=== PATIENT | female | born 1960 | race Caucasian/White ===

== ENCOUNTER 2016-11-15 11:27 | Inpatient (IN) ==
[2016-11-15] MEDS ORDERED: TORADOL IV ONE (12:04)
[2016-11-15 12:12] LABS: MANUAL DIFF NEEDED? NO
[2016-11-15 12:16] LABS: BASO% 0.3 % (0.0-0.8); EOS# 0.04 X1000 (0.0-0.7); EOS% 0.3 % (0.0-10.0); HEMOGLOBIN 14.4 g/dL (12.0-16.0); IMM GRAN# 0.03 X1000 (0.0-0.04); IMM GRAN% 0.2 % (0.0-0.5); LYMPH# 1.58 X1000 (1.2-3.4); LYMPH% 11.1 % (20.5-51.1); MCH 30.8 PG (27-31); MCHC 34.3 g/dL (33-37); MCV 89.7 FL (81-99); MONO# 1.46 X1000 (0.11-0.59); MONO% 10.2 % (1.7-9.3); MPV 9.9 FL (7.4-10.4); NEUT% 77.9 % (42.2-75.2); PLT 322 X1000 (130-400); RBC 4.68 XMIL (4.2-5.4)
--- NOTE | 2016-11-15 12:16 | EKG Report ---
Test Performed on : 11/15/2016 11:24:14 AM Test Reason : ABD PAIN Blood Pressure : / mmHG Vent. Rate : 115 BPM Atrial Rate : 115 BPM P-R Int : 140 ms QRS Dur : 096 ms QT Int : 324 ms P-R-T Axes : -26 132 -17 degrees QTc Int : 448 ms Sinus tachycardia. Incomplete right bundle branch block Left posterior fascicular block Anteroseptal infarct , age undetermined T wave abnormality, consider inferior ischemia Abnormal ECG No previous ECGs available Unconfirmed Result
[2016-11-15 12:45] LABS: AGAP 17; ALKALINE PHOSPHATASE 87 U/L (32-104); AMYLASE 52 U/L (20-200); BUN 8 mg/dL (8-22); CALCIUM 9.8 mg/dL (8.8-10.2); CHLORIDE 92 mmol/L (98-107); COSMO 266; GOT 10 U/L (10-30); GPT 8 U/L (10-36); LIPASE 20 U/L (13-60); POTASSIUM 3.7 mmol/L (3.5-5.1); SODIUM 134 mmol/L (136-145); TCO2 25 mmol/L (25-35); TOTAL BILIRUBIN 0.58 mg/dL (0.20-1.00); TOTAL PROTEIN 7.6 g/dL (6.3-8.3)
--- NOTE | 2016-11-15 12:45 | Diag Imaging Result Doc PS360 ---
CHEST-2 VIEWS - 11/15/2016 INDICATION: fever TECHNIQUE: COMPARISON: 02/20/2015 FINDINGS: The lungs are normally expanded and clear. Heart size and mediastinal contours are normal. No pneumothorax or pleural effusion. IMPRESSION: Negative exam. Electronically signed by Lui Silverio 11/15/2016 12:42 PM
[2016-11-15 12:58] LABS: URINE SOURCE CLEAN CATCH
[2016-11-15 13:02] LABS: BILIRUBIN URINE NEGATIVE (NEGATIVE); BLOOD URINE TRACE (NEGATIVE); COLOR ORANGE; GLUCOSE URINE NEGATIVE (NEGATIVE); LEUKOCYTES URINE LARGE (NEGATIVE); NITRITE URINE NEGATIVE (NEGATIVE); PROTEIN URINE TRACE mg/dL (NEGATIVE); SP GRAVITY URINE 1.017; TURBIDITY URINE HAZY (CLEAR); UROBILINOGEN URINE 2 mg/dL (NORMAL)
[2016-11-15 13:04] LABS: URINE MICRO REVIEW NEEDED? YES
[2016-11-15 13:10] LABS: UR EPITHELIAL CELLS >10 /HPF (<10); URINE BACTERIA 1+ /HPF; URINE CULTURE NEEDED? YES; URINE RBC <10 /HPF (<10); URINE WBC TNTC /HPF (<10)
[2016-11-15] MEDS ORDERED: ROCEPHIN 1 GM in NS 50 ML IV ONE (13:13)
[2016-11-15 13:14] LABS: URINE CASTS NONE SEEN; URINE CRYSTALS NONE SEEN; URINE SMALL ROUND CELLS NONE SEEN
--- NOTE | 2016-11-15 14:08 | Diag Imaging Result Doc PS360 ---
CT ABD/PELVIS W/ IV CONT ONLY - 11/15/2016 INDICATION: lower abd pain TECHNIQUE: A CT dose reduction protocol was used. COMPARISON: None FINDINGS: The lung bases are clear and the heart size is normal. There is a small abscess at the deep right pelvis. This measures about 6.3 x 3.5 cm. This is adjacent to the terminal ileum and also the right adnexa. This is very inflamed. There is trace pelvic free fluid. No urinary obstruction. There are some reactive mesenteric lymph nodes in the right lower quadrant. No free air. Abdominal organs are all normal. There is a round slightly hyper sclerotic mass in the L1 vertebral body. This is actually stable from the lumbar spine MRI of 07/08/2011. No other bony lesions. Stable moderate lumbar spondylosis. No fractures. IMPRESSION: 1. Small inflamed right-sided pelvic abscess, etiology uncertain. This may be from appendicitis, pelvic inflammatory disease, endometriosis, or small bowel diverticulitis just for example. The appendix is not visible. 2. Stable indeterminate bony lesion in L1 vertebral body. Electronically signed by Lui Silverio 11/15/2016 2:06 PM
[2016-11-15] MEDS ORDERED: ZOSYN 3.375 GM in NS 50 ML IV ONE (14:31)
[2016-11-15] MEDS ORDERED: VANCOMYCIN 1 GM/NS 1 GM/250 ML IVPB IV ONE (14:31)
[2016-11-15] MEDS ORDERED: MORPHINE IV ONE (14:32)
[2016-11-15] MEDS ORDERED: ZOFRAN IV ONE (14:32)
[2016-11-15] MEDS ORDERED: ZOFRAN IV PRN (14:35)
[2016-11-15] MEDS ORDERED: NS 1,000 ML IV ONE ×2 (14:35→17:05)
--- NOTE | 2016-11-15 14:40 | PROVIDER DOCUMENTATION ---
This chart was entered by Yesica Arroyo Scribe, acting as scribe for Ethan Lord PA. HPI-Abdominal Pain/GI Problem - General Chief Complaint: Abdominal Pain Stated Complaint: abd pain Time Seen by Provider: 11/15/16 11:50 Source: patient Allergies/Adverse Reactions: Patient Allergies Allergy/AdvReac Type Severity Reaction Status Date / Time No Known Allergies Allergy Verified 11/15/16 11:58 Home Medications: Home Medication List Medication Instructions Recorded Confirmed Last Taken Type Amoxicillin/Potassium Clav 1 tab PO BID 11/15/16 11/15/16 Unknown History [Amox-Clav 875-125 mg Tablet] Levothyroxine [Synthroid] 137 microgm PO DAILY 11/15/16 11/15/16 11/15/16 07:00 History Lisinopril 5 mg PO DAILY 11/15/16 11/15/16 11/15/16 07:00 History Megestrol Acetate 400 mg PO QPM PRN 11/15/16 11/15/16 Unknown History Omeprazole 40 mg PO DAILY 11/15/16 11/15/16 11/15/16 07:00 History - History of Present Illness-ABD Nature of Presenting Problems: Pt is 56 y/o F presents to the ED with lower abdominal pain. Pt states pain has been present for 2 days. Pt endorses nausea and constipation. She denies vomiting, back pain, vaginal discharge. She is post menopausal and denies being sexually active. Pt states recently on Augmentin but does not know why. Abdominal Pain Onset Location: reports: RLQ, LLQ, suprapubic Pain Radiation: reports: no radiation Quality of Pain: reports: aching Severity in ED: reports: mild Onset/Duration: reports: 2 days ago Timing: reports: still present Activities at Onset: reports: light activity Modifying Factors: improves with: nothing Associated Symptoms: reports: constipation, fever/chills. denies: anxiety, arm pain, back/neck pain, chest pain, cough, diaphoresis, diarrhea, dizziness, EENT symptoms, fatigue, genitourinary problems, headaches, heartburn, joint pain, loss of appetite, malaise, muscle aches, sinus congestion/drainage, nausea, rash , seizure, shortness of breath, sensory/motor loss, pain with inspiration, swelling/mass in abdomen, syncope, vomiting, weakness, trouble walking Last BM: 2 days ago Dark Stools Present?: reports: none noticed Rectal Bleeding: reports: none Rectal Pain: reports: none Emesis Description: reports: none Bruising or Bleeding Gums?: No Similar Symptoms Previously?: Yes (present for 2 days ) Recently seen or treated by another doctor?: No Review of Systems - Adult - REVIEW OF SYSTEMS - ADULT Constitutional: reports: no symptoms reported Eyes: reports: no symptoms reported Ears, Nose, Mouth & Throat: reports: no symptoms reported Cardiovascular: reports: no symptoms reported Respiratory: reports: no symptoms reported Gastrointestinal: reports: abdominal pain (lower abdomen), constipation. denies : diarrhea, nausea, vomiting Genitourinary: reports: no symptoms reported Musculoskeletal: reports: no symptoms reported Integumentary: reports: no symptoms reported Neurological: reports: no symptoms reported Psychiatric: reports: no symptoms reported Endocrine: reports: no symptoms reported Hematologic/Lymphatic: reports: no symptoms reported Allergic/Immunologic: reports: no symptoms reported All Other Systems: Reviewed and Negative Past History - Adult - PAST MEDICAL HISTORY-ADULT Review of Records: reports: Nursing Assessment Review, Medications Reviewed, Social history reviewed & non-contributory. Major Childhood Illnesses: reports: denies history Cardiovascular: reports: HTN, hyperlipidemia Respiratory: reports: asthma Gastrointestinal: reports: GERD Obstetrical/Gynecological: reports: denies history Genitourinary: reports: denies history Musculoskeletal: reports: denies history Neurological: reports: denies history Endocrine/Immune: reports: thyroid disorder Other Conditions: reports: denies history - PRIOR SURGERIES/PROCEDURES Surgical/Procedure History: reports: BTL - IMMUNIZATION STATUS Childhood Immunizations: See Nurse Assessment Flu Vaccine: See Nurse Assessment - FAMILY HISTORY Family History: reviewed, not pertinent - SOCIAL HISTORY Smoking: cigarettes, greater than 1 pack/day Provider spent 3-5 mins advising pt. on dangers of tobacco.: Discussed manners to quit use, and f/u contacts for add'l counseling. Substance Use: alcohol, marijuana Alcohol Use Frequency: occasionally Number of drinks per typical drinking period:: 2 drinks Living Situation: family Physical Exam-General - PHYSICAL EXAM-ADULT Initial Vital Signs Reviewed: Yes - CONSTITUTIONAL General Appearance: appears well, alert, no apparent distress. negative: lethargic, slow to respond - EYES Eyes: PERRL/EOMI, pink conjunctivae. negative: pale conjunctivae, sunken eyes - HEAD, EARS, NOSE, MOUTH & THROAT HENMT: normocephalic/atraumatic, moist mucous membranes, normal ENT inspection. negative: angioedema, hearing deficit - NECK Neck: non-tender, normal inspection. negative: lymphadenopathy, tender lateral - RESPIRATORY Respiratory: chest non-tender, lungs clear, normal breath sounds. negative: crackles, rhonchi, wheezing - CARDIOVASCULAR Cardiovascular: normal peripheral pulses, regular rate, rhythm. negative: tachycardia, systolic murmur - GASTROINTESTINAL (ABDOMEN) Abdominal Exam: normal bowel sounds, soft, tenderness (RLQ, suprapubic.). negative: distended, guarding, hernia - LYMPHATIC Lymphatic: no adenopathy. negative: enlargement, streaking - MUSCULOSKELETAL Back Exam: normal inspection. negative: ecchymosis, swelling Extremity: normal range of motion, normal inspection. negative: deformity, swelling, tenderness - SKIN Integumentary: normal color, normal turgor, warm/dry. negative: ecchymosis, erythema, pallor, rash - NEUROLOGIC Neurologic: grossly normal. negative: aphasia, facial droop - PSYCHIATRIC Psych/Mental Status: normal mood/affect, oriented x 3. negative: paranoid, tearful Progress - PLAN OF CARE/RESULTS Progress/Plan/Lab Results: Vital Signs - 8 hr 11/15/16 11:35 Temperature 99.5 F Pulse Rate 115 H Respiratory Rate 23 Blood Pressure 154/105 O2 Sat by Pulse Oximetry 98 Laboratory Results - last 24 hr 11/15/16 11:40 WBC 14.25 H RBC 4.68 Hgb 14.4 Hct 42.0 MCV 89.7 MCH 30.8 MCHC 34.3 RDW Std Deviation 12.4 Plt Count 322 MPV 9.9 Immature Gran % (Auto) 0.2 Neut % (Auto) 77.9 H Lymph % (Auto) 11.1 L [place] % (Auto) 10.2 H Eos % (Auto) 0.3 Baso % (Auto) 0.3 Immature Gran # (Auto) 0.03 Neut # (Auto) 11.10 H Lymph # (Auto) 1.58 [place] # (Auto) 1.46 H Eos # (Auto) 0.04 Baso # (Auto) 0.04 Orders Category Date Time Status Saline Loc DIRECTED Care 11/15/16 12:02 Active NPO Diet 11/15/16 12:02 Active CHEST-2 VIEWS [RAD] Stat Exams 11/15/16 12:[address] ABD/PELVIS W/ IV CONT ONLY [CT] Stat Exams 11/15/16 12:03 Ordered AMYLASE [CHEM] Stat Lab 11/15/16 11:40 Received CBC WITH ELECTRONIC DIFF [HEME] Stat Lab 11/15/16 11:40 Completed COMPREHENSIVE METABOLIC PANEL [CHEM] Stat Lab 11/15/16 11:40 Received LIPASE [CHEM] Stat Lab 11/15/16 11:40 Received URINALYSIS W/POSS RFLX CULT-1 [URINALYSIS] Stat Lab 11/15/16 12:02 Uncollected Ketorolac [Toradol] Med 11/15/16 12:04 Discontinued 30 mg IV NOW ONE EKG [EKG] Stat Ther 11/15/16 11:52 Draft Result Diagrams: 11/15/16 11:40 11/15/16 11:40 - REASSESSMENT Reassessment #1 Time Reassessed: 14:39 Status: improving (Ms. Brown is feeling better. Will admit to Dr. Mayer's service for further managament. Case and plan of care discussed with Dr. Owens.) - XRAY 1 XRAY Study: Chest Impression: Normal XRAY Interpretation: negative exam - CT/MRI 1 CT Study: Abdomen, Pelvis Impression: See EMR Report ( 1. Small inflamed right-sided pelvic abscess, etiology uncertain. This may be from appendicitis, pelvic inflammatory disease, endometriosis, or small bowel diverticulitis just for example. The appendix is not visible. 2. Stable indeterminate bony lesion in L1 vertebral body.) - CONSULTS/PCP/HOSPITALIST Notification #1 *Consult/PCP/Hospitalist*: Dr. Mayer Time Discussed: 14:34 Consult Disposition: Admit (start vanc and zosyn.) Departure - Departure Date of Disposition Decision: 11/15/16 Time of Disposition Decision: 14:34 DIAGNOSIS: Pelvic abscess Disposition: ADMITTED INPATIENT 09 Certified Medical Emergency: Emergent Condition: Stable Referrals and Follow-Ups: Sandra Pink CRNP [Primary Care Provider] - Discharge Education: Smoking Cessation, Tips for Success - Critical Care Note This patient required my direct & personal management of CC.: No Attestation - Physician/ BOZENA Attestation Patient care was provided by Advanced Practice Provider:: Yes Advanced Practice Provider:: Ethan Lord Advanced Practice Provider documentation review:: The Mid-level provider documentation, treatment plan and medical decision making was reviewed by the physician who agrees with all treatment and medical decision making by the MLP. The physician spent face to face time with patient:: No Advanced Practice Provider documentation review:: Supervising physician onsite and consulted in the evaluation and care of this patient. The physician did not have a face to face encounter with the patient. This chart was documented by the candice scribe, (Yesica Arroyo Scribe) and accurately reflects the services I performed and decisions made by , Ethan Lord, PA, as attested by the provider's signature.
[2016-11-15] MEDS ORDERED: VANCOMYCIN IV PER PHARMACY MISC SCH (17:15)
[2016-11-15] MEDS: PROTONIX IV SCH (18:00)
[2016-11-15] MEDS ORDERED: VANCOMYCIN 750 MG in NS 150 ML IV ONE (18:00)
[2016-11-15] MEDS: MORPHINE IV PRN ×2 (18:01→21:26)
[2016-11-15] MEDS: NS 1,000 ML IV SCH (18:01)
[2016-11-15] MEDS: ZOSYN 3.375 GM in NS 50 ML IV SCH (21:28)
--- NOTE | 2016-11-16 01:02 | HISTORY AND PHYSICAL ---
DATE OF ADMISSION: 11/15/2016 HISTORY OF PRESENT ILLNESS: This is a 56-year-old white female who presents to the emergency department with a 4-5 day history of abdominal pain that initially was diffuse, but began localizing in the right lower quadrant a couple days ago. She has received relief in the emergency department by IV pain medication. The ED, after noting a leukocytosis , obtained a CT scan that showed a right lower quadrant abscess of unclear etiology. The appendix was not clearly identified. She was initially tachycardic, but with her volume resuscitation this improved, and she has been hemodynamically stable in the emergency department. MEDICAL HISTORY: She has bipolar disorder. Apparently, has been told she has hypertension, but does not really take medications for any of this. Hypothyroidism. 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 She has been on thyroid medication the majority of her life. Gastroesophageal reflux. SURGICAL HISTORY: Negative. She has never had a colonoscopy. SOCIAL HISTORY: She is a pack a day. History of heavy alcohol abuse. Does not work. She is disabled because of her bipolar disorder. FAMILY HISTORY: Mother had some form of GENERAL DUTY NURSE malignancy, but otherwise a brother had a stroke, but negative for cancer. REVIEW OF SYSTEMS: 10 point negative other than HPI PHYSICAL EXAMINATION: General: This is a 56-year-old female, who appears older than stated age. Vital Signs: Temperature is 98.1 degrees. Pulse was in the 80s to 90s upon my exam, but was as high as 115 when she got here. Blood pressure 105/77. O2 saturation 98% on room air. HEENT: There is no scleral icterus or cervical masses that I palpate. Cardiovascular: Normal rate, regular rhythm. Pulmonary: No increased work of breathing. Abdomen: Soft. She is tender focal in the right lower quadrant, but I do not see any peritonitis. Abdomen is nondistended. Integument: Warm, dry, without jaundice. Lower Extremities: Well-perfused, without edema. . Psychiatric: She has a little bit of a flat affect, seems somewhat anxious. Neurologic: No gross motor deficits. Musculoskeletal : Strength in muscle tone seems normal throughout. LABORATORY STUDIES: White count is elevated at 14, hematocrit 42, platelets are 322. Creatinine 0.6. Sodium is 134. Glucose 91. LFTs are normal. Albumin is normal at 4.0. Amylase and lipase normal. Urinalysis: She does have leukocytes, white blood cells in her urine. CT scan shows a right-sided pelvic abscess that is 4.6 x 3.5 cm, adjacent to the terminal ileum and cecum and right adnexa. There is some reactive mesenteric lymphadenopathy. The appendix is not clearly visualized. The impression of the radiologist was a small inflamed right-sided pelvic abscess. The differential includes appendicitis, pelvic inflammatory disease, endometriosis, small bowel diverticulitis, and indeterminate bone lesion at one of her vertebral bodies. ASSESSMENT AND PLAN: This is a 56-year-old female with a right-sided pelvic abscess. I suspect based off her symptoms this is most likely a perforated appendicitis that has now walled off into an abscess. She is hemodynamically stable and her exam is relatively benign, with the exception of some focal tenderness that is relatively unimpressive, and her white count was mildly elevated at 14. She did not really have any GENERAL DUTY NURSE symptoms. She states a couple weeks ago she had a spot of discharge, but nothing active and ongoing. No pelvic pain, other than this abdominal pain that started within the last week. She has never had a colonoscopy. There is always a concern that this could be an underlying malignancy of the cecum. In the meantime, we will treat her with antibiotics and monitor her progression. If she were to worsen or not improve, we would need to engage Interventional Radiology for percutaneous biopsy, although right now, I think given the long nature and relatively small abscesses, it would be difficult to access percutaneously. We will treat her with hydration, bowel rest, and IV antibiotics with vancomycin and Zosyn, continue to follow along. If she worsens, we will re-scan. We discussed the possibility of surgical options, that this could require resection of small intestine, drainage of abscess with drains, but in the meantime we will treat her nonoperatively and monitor her progress with the presumed diagnosis of perforated appendicitis with abscess. cc: Dori Mayer MD [facility]OSPITALSusan
[2016-11-16] MEDS: MORPHINE IV PRN ×6 (02:36→22:33)
[2016-11-16] MEDS: ZOSYN 3.375 GM in NS 50 ML IV SCH ×4 (04:27→22:31)
[2016-11-16] MEDS: NS 1,000 ML IV SCH ×3 (04:27→23:39)
[2016-11-16] MEDS: LOVENOX SUBQ SCH (05:23)
[2016-11-16 09:42] LABS: AGAP 18; BUN 10 mg/dL (8-22); CALCIUM 9.4 mg/dL (8.8-10.2); CHLORIDE 93 mmol/L (98-107); COSMO 266; POTASSIUM 4.5 mmol/L (3.5-5.1); SODIUM 134 mmol/L (136-145); TCO2 23 mmol/L (25-35)
--- NOTE | 2016-11-16 11:53 | PROGRESS NOTE ---
DATE: 11/16/2016 SUBJECTIVE: She feels a lot better. Pain is better. She is hungry. She is having bowel function. OBJECTIVE: T-max overnight is 100.1. For the most part, her heart rate has been in the 80s and 90s, but she did crest in the low 100s this morning, blood pressure is 127/76, saturation 98% on room air. General: She is alert, in no acute distress. HEENT: No scleral icterus. Cardiovascular: Normal rate, regular rhythm. Abdomen is soft. The tenderness in the right lower quadrant is much improved. I do not see any peritonitis stigmata. Otherwise warm and dry, without lower extremity edema. DIAGNOSTIC DATA: Labs are pending this morning. ASSESSMENT AND PLAN: This is a 56-year-old female with right lower quadrant abscess, felt to be secondary to perforated appendicitis given her history. We will treat her with antibiotics for now, broad spectrum. As long as she improves, we may be able to hold off on intervention, but if she were to worsen or fail to improve, she may need a repeat CT scan and possible percutaneous drainage of this abscess. We will hold off on operation at this point. She may ultimately need interval appendectomy, but she will most definitely need a colonoscopy in the future after this is resolved. cc: Dori Maeyr MD
[2016-11-16] MEDS: VANCOMYCIN 1,500 MG in NS 250 ML IV SCH (15:07)
[2016-11-16] MEDS: SODIUM CHLORIDE 0.9% INJ SCH (17:15)
[2016-11-16] MEDS: PROTONIX IV SCH (17:15)
[2016-11-16 19:43] LABS: MANUAL DIFF NEEDED? NO
[2016-11-16 19:54] LABS: BASO% 0.3 % (0.0-0.8); EOS# 0.08 X1000 (0.0-0.7); EOS% 0.6 % (0.0-10.0); HEMATOCRIT 34.2 % (37.0-47.0); HEMOGLOBIN 11.6 g/dL (12.0-16.0); IMM GRAN# 0.05 X1000 (0.0-0.04); IMM GRAN% 0.4 % (0.0-0.5); LYMPH# 1.72 X1000 (1.2-3.4); LYMPH% 12.6 % (20.5-51.1); MCH 30.7 PG (27-31); MCHC 33.9 g/dL (33-37); MCV 90.5 FL (81-99); MONO# 1.42 X1000 (0.11-0.59); MONO% 10.4 % (1.7-9.3); MPV 9.8 FL (7.4-10.4); NEUT% 75.7 % (42.2-75.2); PLT 301 X1000 (130-400); RBC 3.78 XMIL (4.2-5.4)
[2016-11-17] MEDS: MORPHINE IV PRN ×5 (03:16→21:04)
[2016-11-17] MEDS: ZOSYN 3.375 GM in NS 50 ML IV SCH ×4 (03:17→21:05)
[2016-11-17] MEDS: VANCOMYCIN 1,500 MG in NS 250 ML IV SCH (06:00)
[2016-11-17] MEDS: SYNTHROID PO SCH (06:00)
[2016-11-17] MEDS: LOVENOX SUBQ SCH (06:00)
[2016-11-17 09:15] LABS: AGAP 16; BUN 5 mg/dL (8-22); CALCIUM 8.6 mg/dL (8.8-10.2); CHLORIDE 89 mmol/L (98-107); COSMO 254; POTASSIUM 3.5 mmol/L (3.5-5.1); SODIUM 127 mmol/L (136-145); TCO2 22 mmol/L (25-35)
[2016-11-17 09:39] LABS: MANUAL DIFF NEEDED? NO
[2016-11-17 09:41] LABS: BASO% 0.5 % (0.0-0.8); EOS# 0.07 X1000 (0.0-0.7); EOS% 0.5 % (0.0-10.0); HEMATOCRIT 34.5 % (37.0-47.0); IMM GRAN# 0.08 X1000 (0.0-0.04); IMM GRAN% 0.6 % (0.0-0.5); LYMPH# 1.44 X1000 (1.2-3.4); LYMPH% 10.9 % (20.5-51.1); MCH 31.2 PG (27-31); MCHC 34.8 g/dL (33-37); MCV 89.6 FL (81-99); MONO# 1.21 X1000 (0.11-0.59); MONO% 9.2 % (1.7-9.3); MPV 9.9 FL (7.4-10.4); NEUT% 78.3 % (42.2-75.2); PLT 301 X1000 (130-400); RBC 3.85 XMIL (4.2-5.4)
[2016-11-17] MEDS ORDERED: NICODERM PATCH TD ONE (14:34)
--- NOTE | 2016-11-17 15:11 | PROGRESS NOTE ---
DATE: 11/17/2016 SUBJECTIVE: She feels much better. Pain is improving. She is ambulating. She is hungry. OBJECTIVE: Vital signs: No fevers overnight. Pulse is in the 90s. Blood pressure of 157/88, oxygen saturation 100% on room air. General: She is alert, in no acute distress. Abdomen: Soft, nontender, nondistended. LABORATORY: I reviewed her laboratory. White count down to 13. Hematocrit 34. Platelets 301,000. Creatinine 0.6. Glucose 132. ASSESSMENT/PLAN: A 51-year-old female with a right lower quadrant abscess felt to be related to a perforated appendicitis. She is improving clinically with antibiotics. Her white count is downtrending. Her pain has resolved. We will continue these for now. If she develops a worsening picture, we will repeat a CT scan. She may need evaluation and percutaneous drainage. Otherwise, we will treat her definitively for antibiotics for now with possible interval appendectomy or exploration as an outpatient. In the meantime, we will keep her on clear liquids with broad-spectrum antibiotics and advance her diet over the next 24-48 hours. cc: Dori Mayer MD
[2016-11-17] MEDS: SODIUM CHLORIDE 0.9% INJ SCH (17:17)
[2016-11-17] MEDS: PROTONIX IV SCH (17:17)
[2016-11-17] MEDS: NS 1,000 ML IV SCH (17:42)
[2016-11-18] MEDS: VANCOMYCIN 1,500 MG in NS 250 ML IV SCH ×3 (02:08→16:44)
[2016-11-18] MEDS: MORPHINE IV PRN ×5 (04:56→23:00)
[2016-11-18] MEDS: ZOSYN 3.375 GM in NS 50 ML IV SCH ×4 (04:57→23:00)
[2016-11-18] MEDS: LOVENOX SUBQ SCH ×2 (04:57→06:25)
[2016-11-18] MEDS: PROTONIX IV SCH (06:30)
[2016-11-18] MEDS: SYNTHROID PO SCH (06:31)
[2016-11-18] MEDS: NICODERM PATCH TD SCH (10:04)
[2016-11-18 12:22] LABS: MANUAL DIFF NEEDED? NO
[2016-11-18 12:32] LABS: BASO% 0.4 % (0.0-0.8); EOS# 0.05 X1000 (0.0-0.7); EOS% 0.5 % (0.0-10.0); HEMATOCRIT 35.2 % (37.0-47.0); IMM GRAN# 0.06 X1000 (0.0-0.04); IMM GRAN% 0.6 % (0.0-0.5); LYMPH# 1.53 X1000 (1.2-3.4); LYMPH% 15.1 % (20.5-51.1); MCH 30.6 PG (27-31); MCHC 34.1 g/dL (33-37); MCV 89.8 FL (81-99); MONO# 0.84 X1000 (0.11-0.59); MONO% 8.3 % (1.7-9.3); MPV 9.6 FL (7.4-10.4); NEUT% 75.1 % (42.2-75.2); PLT 359 X1000 (130-400); RBC 3.92 XMIL (4.2-5.4)
--- NOTE | 2016-11-18 17:45 | PROGRESS NOTE ---
DATE: 11/18/2016 SUBJECTIVE: She feels much better. She anxiously wants to eat and smoke. OBJECTIVE: No fevers overnight. Pulse in the 90s, blood pressure 151/76, oxygen saturation 99% on room air. General: She is alert, in no acute distress. She is ambulating about her room. Cardiovascular: Normal rate, regular rhythm. Abdomen is soft, nontender, nondistended with no peritonitis. LABS: Reviewed the labs. White count down to 10 this morning, hematocrit 35, platelets 359,000. ASSESSMENT AND PLAN: This is a 56-year-old female with right lower quadrant abscess likely secondary to perforated appendicitis. She has improved rapidly. If her white count remains normal and her pain is resolved, will transition to oral antibiotics tomorrow and plan for her to go home. We will also plan to repeat a CT scan in the future as an outpatient and she will need a colonoscopy as well given that she has never had one and she is 56. Discussed this plan with the patient. Will continue to follow along and see how she does. Will continue broad-spectrum antibiotics for now. cc: Dori Mayer MD
[2016-11-19] MEDS: VANCOMYCIN 1,500 MG in NS 250 ML IV SCH ×2 (02:39→14:20)
[2016-11-19] MEDS: MORPHINE IV PRN ×4 (02:39→19:51)
[2016-11-19] MEDS: NS 1,000 ML IV SCH ×3 (02:39→19:52)
[2016-11-19] MEDS: ZOSYN 3.375 GM in NS 50 ML IV SCH ×3 (05:57→18:14)
[2016-11-19] MEDS: SODIUM CHLORIDE 0.9% INJ SCH (05:57)
[2016-11-19] MEDS: LOVENOX SUBQ SCH (05:58)
[2016-11-19] MEDS: PROTONIX IV SCH ×2 (05:58→08:27)
[2016-11-19] MEDS: SYNTHROID PO SCH (06:00)
[2016-11-19 08:41] LABS: BASO% 0.4 % (0.0-0.8); EOS# 0.15 X1000 (0.0-0.7); EOS% 1.5 % (0.0-10.0); HEMATOCRIT 36.5 % (37.0-47.0); HEMOGLOBIN 12.5 g/dL (12.0-16.0); IMM GRAN# 0.07 X1000 (0.0-0.04); IMM GRAN% 0.7 % (0.0-0.5); LYMPH# 1.87 X1000 (1.2-3.4); LYMPH% 19.1 % (20.5-51.1); MANUAL DIFF NEEDED? NO; MCH 30.6 PG (27-31); MCHC 34.2 g/dL (33-37); MCV 89.5 FL (81-99); MONO# 0.89 X1000 (0.11-0.59); MONO% 9.1 % (1.7-9.3); MPV 9.3 FL (7.4-10.4); NEUT% 69.2 % (42.2-75.2); PLT 397 X1000 (130-400); RBC 4.08 XMIL (4.2-5.4)
[2016-11-19 08:58] LABS: AGAP 13; BUN 3 mg/dL (8-22); CHLORIDE 95 mmol/L (98-107); COSMO 267; POTASSIUM 3.2 mmol/L (3.5-5.1); SODIUM 135 mmol/L (136-145); TCO2 27 mmol/L (25-35)
[2016-11-19] MEDS: NICODERM PATCH TD SCH (09:38)
--- NOTE | 2016-11-19 14:04 | PROGRESS NOTE ---
DATE: 11/19/2016 SUBJECTIVE: She is still overall feeling much better. She drank a carbonated beverage awhile ago and go a little full, a little bloated with this but no recurrence of her pain. OBJECTIVE: No fevers. Pulse is 88, blood pressure 145/111, oxygen saturation 97% on room air.General: She is alert, in no acute distress. Abdomen: Soft, nontender, nondistended. LABS: White count remains normal at 9, hematocrit 36, creatinine is 0.8, glucose 111. ASSESSMENT/PLAN: A 56-year-old female with right lower quadrant abscess felt to be secondary to a perforated appendicitis. Continue treatment currently with broad-spectrum antibiotics today. I think given her incomplete tolerance to oral intake we will continue to monitor her but give her a soft diet today and plan to transition to oral antibiotics and let her go home when she is tolerating p.o. cc: Dori Mayer MD
[2016-11-20] MEDS: NS 1,000 ML IV SCH ×2 (00:19→18:07)
[2016-11-20] MEDS: ZOSYN 3.375 GM in NS 50 ML IV SCH ×2 (00:29→06:40)
[2016-11-20] MEDS: MORPHINE IV PRN ×4 (00:53→20:25)
[2016-11-20] MEDS: VANCOMYCIN 1,500 MG in NS 250 ML IV SCH (02:55)
[2016-11-20] MEDS: PROTONIX IV SCH (06:40)
[2016-11-20] MEDS: LOVENOX SUBQ SCH (06:40)
[2016-11-20] MEDS: SYNTHROID PO SCH (06:40)
[2016-11-20] MEDS: NICODERM PATCH TD SCH (09:02)
[2016-11-20] MEDS: COLACE PO SCH ×3 (09:02→23:06)
[2016-11-20 09:57] LABS: MANUAL DIFF NEEDED? NO
[2016-11-20 09:59] LABS: BASO% 0.5 % (0.0-0.8); EOS# 0.13 X1000 (0.0-0.7); HEMOGLOBIN 12.5 g/dL (12.0-16.0); IMM GRAN# 0.11 X1000 (0.0-0.04); IMM GRAN% 0.9 % (0.0-0.5); LYMPH# 1.83 X1000 (1.2-3.4); LYMPH% 14.3 % (20.5-51.1); MCH 30.6 PG (27-31); MCHC 33.8 g/dL (33-37); MCV 90.5 FL (81-99); MONO# 1.02 X1000 (0.11-0.59); MPV 9.2 FL (7.4-10.4); NEUT% 75.3 % (42.2-75.2); PLT 416 X1000 (130-400); RBC 4.09 XMIL (4.2-5.4)
--- NOTE | 2016-11-20 13:33 | Diag Imaging Result Doc PS360 ---
EXAM: CT ABD/PELVIS W/PO AND IV CON INDICATION: follow up intraabdominal abscess TECHNIQUE: Dose reduction protocol was used. COMPARISON: 11/15/2016 FINDINGS: The gallbladder is partially contracted. It is unremarkable, otherwise. The liver, spleen, adrenal glands, and pancreas are unremarkable. There is a small left renal cyst. The kidneys are unremarkable, otherwise. The urinary bladder is unremarkable. The right-sided pericecal abscess seen on the previous study is again identified. It measures slightly larger in the axial plane than the previous study at 6.6 x 2.9 cm (5.9 x 2.5 cm previously, remeasured). However, this difference is probably mainly due to differences in slice registration. Subjectively, it appears to be approximately stable in size. There is mild distention of the colon that contains liquid stool. There is no obstructive bowel pattern. IMPRESSION: 1.Stable to slightly larger pericecal abscess. 2.Mild distention of the colon containing liquid stool but no evidence of obstruction. Electronically signed by Pedro Luis Long 11/20/2016 1:31 PM
[2016-11-20 16:22] LABS: BASO% 0.7 % (0.0-0.8); EOS# 0.15 X1000 (0.0-0.7); EOS% 1.2 % (0.0-10.0); HEMOGLOBIN 12.3 g/dL (12.0-16.0); IMM GRAN# 0.11 X1000 (0.0-0.04); IMM GRAN% 0.9 % (0.0-0.5); LYMPH# 2.05 X1000 (1.2-3.4); LYMPH% 16.9 % (20.5-51.1); MANUAL DIFF NEEDED? NO; MCH 30.5 PG (27-31); MCHC 34.2 g/dL (33-37); MCV 89.3 FL (81-99); MONO# 1.01 X1000 (0.11-0.59); MONO% 8.3 % (1.7-9.3); MPV 8.9 FL (7.4-10.4); PLT 419 X1000 (130-400); RBC 4.03 XMIL (4.2-5.4)
[2016-11-20 18:09] LABS: INR 0.97; PROTIME 10.2 Seconds (9.2-11.7)
--- NOTE | 2016-11-20 19:38 | CONSULTATION ---
DATE OF CONSULTATION: 11/20/2016 CONCLUSION: Patient has a right lower quadrant pelvic abscess, which is thought to be secondary to appendicitis. RECOMMENDATIONS: I agree with the decision to treat the patient with Zosyn. I think now we can discontinue vancomycin. Dr. Mayer and I have discussed the case with the patient and we think it would be reasonable to try to send her home on IV antibiotics through a PICC. Therefore, I have changed the Zosyn dosing from 3.375 g IV every 6 hours to 4.5 g every 8 hours. Also, I have requested that a PICC be placed. I put a consult in for [facility] to supply the patient's home IV antibiotic and I have requested that the patient see me 3 months after discharge. Vancomycin has been discontinued. DISCUSSION: The patient tells me approximately 4 weeks ago she started having abdominal pain. She had chills. She did not measure her temperature. She has had constipation alternating with diarrhea. The patient has been hospitalized. A CT scan shows a right pelvic abscess. Chest x- ray shows no infiltrates. Creatinine is 0.8. GFR is greater than 60. Urine culture is negative for infection. Vancomycin level is 22.2. [place] [address], hemoglobin 12.3, and platelet count 419,000. PAST MEDICAL HISTORY AND REVIEW OF SYSTEMS: Eyes and ears: The patient states her hearing is good, but she has a decrease in her vision. Neck no stiffness. Respiratory: No cough or shortness of breath. Cardiac: No chest pain or palpitations. GI: As mentioned above, since the patient has been ill, she has been having constipation alternating with diarrhea. Bones, joints, muscles: No joint swelling or muscle aches. 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 She is not a diabetic. Neurologic: No seizures. No motor or sensory deficit. Integument: No rashes. ADMINISTRATIVE UNDERWRITER history: She is a 2, para 2, AB 0. She has had a tubal ligation. PREVIOUS HOSPITALIZATIONS: She has had labor and deliveries, and a tubal ligation. MEDICAL DISEASES: Positive for hypertension, congenital absence of the thyroid and gastroesophageal reflux disease. INFECTIOUS DISEASE HISTORY: Positive for pneumonia and UTI. FAMILY HISTORY: Positive for cancer, myocardial infarction and stroke. SOCIAL HISTORY: [place] and daughter-in- law. She stopped drinking alcohol 3 years ago. She smokes cigarettes. She denies abusing drugs. She has a dog for a pet. ALLERGIES: Her chart shows that she has no drug allergies. HOME MEDICATIONS: The patient's home medications include Megestrol, Augmentin, omeprazole, lisinopril and Synthroid. PHYSICAL EXAMINATION: Temperature is 98.3 degrees, pulse 99, respirations 18, 15/84. The patient weighs 126 pounds. General: This is a somewhat ill-appearing, middle-aged female. She is in no acute distress. Head, eyes, ears, nose, and throat: She can hear my spoken words and see near objects. No drainage noted from the nose or ears. There are no white patches on the tongue. Neck: No meningismus. Thorax: No increased AP diameter of the chest. Lungs: Clear to auscultation. Cardiovascular: Heart rate is regular. Peripheral pulses are palpable. Abdomen: Soft. It does seem to be tender in the right lower quadrant. Bowel sounds are present. Neurologic: Patient is alert. She can move her extremities. There is no tremor. Her sensation is intact to touch. Her memory, as regarding her medical history, appeared to be intact. Integument: No rash noted. Bones, joints, muscles: No swollen joints or muscle tenderness. Thank you for the consult. cc: MD Dori Blakely MD MTDD
[2016-11-20] MEDS: ZOSYN 4.5 GM in NS 100 ML IV SCH (19:57)
[2016-11-20] MEDS ORDERED: VANCOMYCIN 1,250 MG in NS 250 ML IV SCH (20:00)
[2016-11-21] MEDS: MORPHINE IV PRN ×5 (03:25→21:35)
[2016-11-21] MEDS: ZOSYN 4.5 GM in NS 100 ML IV SCH ×3 (04:44→21:35)
[2016-11-21] MEDS: SYNTHROID PO SCH (06:11)
[2016-11-21] MEDS: PROTONIX IV SCH (06:11)
[2016-11-21] MEDS: LOVENOX SUBQ SCH (06:11)
[2016-11-21] MEDS: SODIUM CHLORIDE 0.9% INJ SCH (06:11)
[2016-11-21] MEDS ORDERED: NS 250 ML ONE (08:50)
--- NOTE | 2016-11-21 08:53 | PROGRESS NOTE ---
DATE: 11/21/2016 PRESENT ILLNESS: The patient has a pelvic abscess in the right lower quadrant thought to be secondary to appendicitis. MEDICATIONS: The patient is receiving Zosyn as a single agent at a dose of 4.5 g IV q.8 h. PHYSICAL EXAMINATION: Vital signs: Temperature is 98.2, pulse 91, respirations 18, blood pressure 143/80. General: This is a somewhat ill-appearing middle-aged female. She is in no acute distress. When we talked about doing her antibiotics through the vein at home, she did cry and said that she wanted to do them in the retirement. Lungs: Clear to auscultation. Cardiovascular: Regular heart rate. Abdomen: Soft and nontender. LABORATORY AND X-RAY: There is no new lab or x-ray for today. ASSESSMENT: The patient has a pelvic abscess. The plan is to have a PICC inserted and then have the patient do her antibiotic, namely IV Zosyn, as an outpatient, whether it would be at her home or in the retirement. The patient's comorbidity is that she apparently has difficulty living with her family that lives with her. PLAN: To continue the IV antibiotics either at home or in a retirement. Comorbidity in this patient is her home situation, and the patient is afraid about having a PICC placed. She also is afraid to be doing the antibiotics at home herself through the vein. She states that her family is very busy and would not be able to help her, and told her not to have anything like that done, namely putting in an IV antibiotics. cc: MD Dori Blakely MD
[2016-11-21 09:53] LABS: MANUAL DIFF NEEDED? NO
[2016-11-21 09:55] LABS: BASO% 0.4 % (0.0-0.8); EOS# 0.21 X1000 (0.0-0.7); EOS% 1.9 % (0.0-10.0); HEMATOCRIT 36.9 % (37.0-47.0); HEMOGLOBIN 12.6 g/dL (12.0-16.0); IMM GRAN# 0.11 X1000 (0.0-0.04); LYMPH# 1.73 X1000 (1.2-3.4); LYMPH% 15.6 % (20.5-51.1); MCH 30.5 PG (27-31); MCHC 34.1 g/dL (33-37); MCV 89.3 FL (81-99); MONO# 0.77 X1000 (0.11-0.59); MONO% 6.9 % (1.7-9.3); MPV 8.9 FL (7.4-10.4); NEUT% 74.2 % (42.2-75.2); PLT 418 X1000 (130-400); RBC 4.13 XMIL (4.2-5.4)
[2016-11-21] MEDS: NICODERM PATCH TD SCH (10:12)
[2016-11-21] MEDS: COLACE PO SCH ×2 (10:12→21:36)
[2016-11-21] MEDS: NS 1,000 ML IV SCH (14:06)
--- NOTE | 2016-11-21 15:36 | PROGRESS NOTE ---
DATE: 11/21/2016 SUBJECTIVE: She feels okay, is still a little distended. Really anxious. Wants to go to a longterm now. Family issues at home. OBJECTIVE: No fevers. No tachycardia. Blood pressure 143/80. Oxygen saturation 99% on room air. General: She is alert. Abdomen is soft, nontender, mildly distended. White count is 11, hematocrit is 36. ASSESSMENT AND PLAN: A 56-year-old female with abdominal abscess felt to be related to perforated appendicitis. We will continue IV antibiotics. Dr. Phoenix placed in a PICC line, and we will treat her as an outpatient. Regarding her social situation, she wants to go to a longterm. She is going to have a hard time with IV antibiotics and, so, we will ask the nursing home social worker to see her. In the meantime, I will continue current care. cc: Dori Mayer MD MTDD
[2016-11-22] MEDS: ZOSYN 4.5 GM in NS 100 ML IV SCH ×2 (04:10→13:24)
[2016-11-22] MEDS: MORPHINE IV PRN ×2 (04:10→09:19)
[2016-11-22 05:15] LABS: MANUAL DIFF NEEDED? NO
[2016-11-22 05:23] LABS: BASO% 0.6 % (0.0-0.8); EOS# 0.27 X1000 (0.0-0.7); EOS% 2.8 % (0.0-10.0); HEMATOCRIT 38.6 % (37.0-47.0); IMM GRAN# 0.23 X1000 (0.0-0.04); IMM GRAN% 2.4 % (0.0-0.5); MCH 30.3 PG (27-31); MCHC 33.7 g/dL (33-37); MONO# 1.04 X1000 (0.11-0.59); MONO% 10.9 % (1.7-9.3); MPV 9.1 FL (7.4-10.4); NEUT% 61.3 % (42.2-75.2); PLT 447 X1000 (130-400); RBC 4.29 XMIL (4.2-5.4)
[2016-11-22 05:39] LABS: AGAP 17; BUN 9 mg/dL (8-22); CALCIUM 9.8 mg/dL (8.8-10.2); CHLORIDE 95 mmol/L (98-107); COSMO 272; POTASSIUM 4.2 mmol/L (3.5-5.1); SODIUM 137 mmol/L (136-145); TCO2 25 mmol/L (25-35)
[2016-11-22] MEDS: SYNTHROID PO SCH (06:07)
[2016-11-22] MEDS: LOVENOX SUBQ SCH (06:07)
[2016-11-22] MEDS: PROTONIX IV SCH (06:07)
[2016-11-22] MEDS: SODIUM CHLORIDE 0.9% INJ SCH (06:07)
[2016-11-22] MEDS ORDERED: DULCOLAX PR SCH (09:00)
[2016-11-22] MEDS: NICODERM PATCH TD SCH (09:19)
[2016-11-22] MEDS: COLACE PO SCH (09:19)
[2016-11-22 11:40] VITALS: BP 124/79
--- NOTE | 2016-11-22 18:35 | PROGRESS NOTE ---
DATE: 11/22/2016 PRESENT ILLNESS: The patient has a pelvic abscess in the right lower quadrant thought to be secondary to appendicitis. MEDICATIONS: The patient is receiving Zosyn at a dose of 4.5 g IV every 8 hours. PHYSICAL EXAMINATION: Vital Signs: Temperature is 98.3 degrees, respirations 16, blood pressure 124/72. General: This is a healthy-appearing middle-aged female. She is in no acute distress. Lungs: Clear to auscultation. Cardiovascular: Regular heart rate. Abdomen: Soft. It is slightly tender in the lower part on both sides. Neurologic: Patient is alert. She can move her extremities. There is no tremor. Extremities: Patient has a PICC in place. The site is not erythematous or purulent. LAB AND X-RAY STUDIES: Following the CBC for today shows a white count of 9500, hemoglobin 13, and platelet count 447,000. Creatinine 0.9. GFR is greater than 60.. ASSESSMENT AND PLAN: I plan to continue the patient's current antibiotics except for what we are going to do is give them to the patient has a constant infusion, that way it only once a day that way when the patient is an outpatient ,will the cartridge that holds the antibiotics need to be changed. After we explained this to the patient and her brother and [id number], the patient was agreeable to do it as was the rest of the family. I plan to see the patient in the office approximately 3 weeks after discharge. If a recent CAT scan has not been performed, I will order one. In general, I would like to treat as long as it takes until the abscess has cleared from the CT scan. COMORBIDITIES: The patient's comorbidities include any difficulty home situation. Initially the patient's son and [id number] did not want her to have antibiotics through the vein at home and the patient went along with this. Now, the family members have changed their mind and will allow the patient to get home IV antibiotics now that they understand that they only have to change the cartridge once in every 24 hours. They are agreeable to it as is the patient. cc: MD Dori Blakely MD
--- NOTE | 2016-12-05 12:20 | DISCHARGE SUMMARY ---
ADMISSION DATE: 11/15/2016 DISCHARGE DATE: 11/22/2016 ADMITTING DIAGNOSIS: Right lower quadrant abscess. DISCHARGE DIAGNOSIS: Right lower quadrant abscess. PROCEDURES PERFORMED: None other than a PICC line placement. Date of admission was 11/15/2016. Date of discharge 11/22/2016. HISTORY OF PRESENT ILLNESS: This is a 56-year-old female, who presented with right lower quadrant abdominal pain for approximately a week. CT scan showed a complex right lower quadrant abscess with no obvious appendix visualized. She had a leukocytosis and was tachycardic with some fevers when she came in. We started her on antibiotics. She rapidly improved with volume resuscitation and white count normalized in a short interval of the next couple days. She did have a slight bump in her white count prompting a repeat CT scan that showed overall stable fluid collection. Fluid collection was not amenable to percutaneous drainage as it was quite long, it was thin and located deep within the pelvis. Dr. Phoenix was consulted and we placed a PICC line. She was tolerating her diet and having normal bowel function. Her white count had normalized and no fevers for several days. She was felt safe for discharge home. OBJECTIVE: On the day of her discharge. Her abdomen was soft, nontender, nondistended. There was no fever and no tachycardia. Blood pressures were appropriate. PICC line was in place with no signs of complication. DISPOSITION: Home with self-care and with home health for PICC line management and IV antibiotics. DISCHARGE INSTRUCTIONS: Follow-up appointment with me in the next 1-2 weeks to follow her progress. We discussed signs and symptoms of worsening abscess, fevers, worsening pain, nausea or vomiting. She will notify me if these were to develop. We plan to repeat a CT scan near the completion of her antibiotics to ensure resolution. She will need a colonoscopy as she has never had one these as well approximately 6 weeks for now. We will make a decision does she need to have an interval appendectomy or not in the future. I do feel this was perforated appendicitis causing this right lower quadrant. DISCHARGE DIET: Discussed GI soft diet. ACTIVITY: Otherwise as tolerated. DISCHARGE MEDICATION: Dr. Phoenix is managing her IV antibiotics. Plan for Zosyn and she can otherwise continue her home medication. cc: Dori Mayer MD
--- NOTE | 2016-12-31 19:15 | ED EKG INTERP ---
This chart was entered by Yesica Arroyo Scribe, acting as scribe for Tk Owens MD. EKG Interpretation - EKG Time of EKG reading by physician:: 11:24 EKG Read and Signed by:: Tk Owens EKG Interpretation (*Must complete 3 of following elements*): Abnormal ( anteroseptal infarct, age undetermined; T wave abnormality, consider inferior ischemia) Rate: 115 Rhythm: sinus tachycardia Comments: incomplete RBBB; left posterior fascicular block Attestation - Physician/ BOZENA Attestation Patient care was provided by Advanced Practice Provider:: Yes Advanced Practice Provider documentation review:: The Mid-level provider documentation, treatment plan and medical decision making was reviewed by the physician who agrees with all treatment and medical decision making by the MLP. The physician spent face to face time with patient:: No Advanced Practice Provider documentation review:: Supervising physician onsite and consulted in the evaluation and care of this patient. The physician did not have a face to face encounter with the patient. This chart was documented by the indicated scribe, (Yesica Arroyo Scribe) and accurately reflects the services I performed and decisions made by iaRoman Wenli X, MD, as attested by the provider's signature.
== END 2016-11-22 15:51 | disposition home health service (06) ==
LOC: ED 11:27 → 4N 15:47
PROVIDERS: ADMIT Surgery; ATTEND Surgery